=== PATIENT | male | born 1980 | race Caucasian/White ===

== ENCOUNTER 2020-10-29 15:56 | Observation (INO) | payer BC ==
[~2020-10-29] VITALS: Ht 185.4 cm; Wt 104.0 kg
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
[2020-10-29] MEDS ORDERED: SODIUM CHLORIDE FLUSH 10ML SYR IVF ONE (17:00)
[2020-10-29] MEDS ORDERED: SODIUM CHLORIDE 0.9% 1,000 ML IV ONE (17:00)
[2020-10-29] MEDS ORDERED: HYDROmorphone 2 MG/ML, 1ML IVPush ONE (17:00)
[2020-10-29] MEDS ORDERED: ONDANSETRON 2MG/ML, 2ML IVPush ONE (17:00)
--- NOTE | 2020-10-29 17:12 | NUR ---
ORTHOPEDIC SURGEON AT BEDSIDE. DISCUSSED PLAN OF CARE WITH PATIENT AND FAMILY. PER MD, PT NPO FOR SURGERY JENNIFER
[2020-10-29] MEDS ORDERED: ONDANSETRON 2MG/ML, 2ML ONE ×2 (17:13→20:28)
[2020-10-29] MEDS ORDERED: HYDROmorphone 1 MG/ML, 1ML INJ ONE (17:13)
--- NOTE | 2020-10-29 17:23 | NUR ---
pt co of pain: see mar for interventions
--- NOTE | 2020-10-29 18:51 | NUR ---
REPORT GIVEN TO OR
--- NOTE | 2020-10-29 18:52 | NUR ---
RIGHT HAND WOUND CONTINUES TO SATURATE DRESSING. REDRESSED WITH GAUZE/ COBAN.
--- NOTE | 2020-10-29 19:24 | NUR ---
Note corina in EDM - 10/29/20 at 1925 by MICHAEL PT DIAPHORETIC, HR [id number]. MADE AWARE. ORDERED MEDICATIONS ADMINISTERED AND INFUSING. SECURITY CONTACTED PER PT. REQUEST TO PLACE BELONGINGS IN [place].
--- NOTE | 2020-10-29 19:25 | NUR ---
Gabriela arriaga in [place] - 10/29/20 at 1925 by MICHAEL REPORT GIVEN TO BUSINESS SYSTEMS ANALYST
[2020-10-29] MEDS ORDERED: BUPIVACAINE/PF 0.5% ONE (19:29)
[2020-10-29] MEDS ORDERED: MIDAZOLAM 1 MG/ML, 2ML ONE (19:45)
[2020-10-29] MEDS ORDERED: FENTANYL PF 250 MCG/5ML ONE ×2 (19:45→22:11)
[2020-10-29] MEDS ORDERED: SODIUM CHLORIDE 0.9% PF 10ML ONE (19:46)
[2020-10-29] MEDS ORDERED: LABETALOL 5MG/ML, 20ML IV PRN (20:00)
[2020-10-29] MEDS ORDERED: EPHEDRINE 50 MG/ML, 1ML IVPush PRN (20:00)
[2020-10-29] MEDS ORDERED: hydrALAzine 20 MG/ML, 1ML IV PRN (20:00)
[2020-10-29] MEDS ORDERED: PROMETHAZINE 25 MG/ML, 1ML IVPush PRN (20:00)
[2020-10-29] MEDS ORDERED: OXYcodone 5 MG/5 ML ORAL.SOL UDC PO PRN (20:00)
[2020-10-29] MEDS ORDERED: ONDANSETRON 2MG/ML, 2ML IVPush PRN (20:00)
[2020-10-29] MEDS ORDERED: LIDOCAINE-MPF 2% ,5ML ONE (20:04)
[2020-10-29] MEDS ORDERED: DEXAMETHASONE 4 MG/ML, 5ML ONE (20:04)
[2020-10-29] MEDS ORDERED: KETOROLAC 30 MG/1 ML ONE (20:04)
[2020-10-29] MEDS ORDERED: PROPOFOL 10 MG/ML, 20ML ONE (20:28)
[2020-10-29] MEDS ORDERED: CEFAZOLIN 1,000 MG ONE (20:28)
[2020-10-29] MEDS ORDERED: GLYCOPYRROLATE 0.2MG/1ML, 5ML ONE ×2 (20:28→20:29)
[2020-10-29] MEDS ORDERED: BUPIVACAINE/PF 0.5% INFIL ONE (20:37)
[2020-10-30] MEDS ORDERED: CEFAZOLIN 1,000 MG ONE ×2 (00:07)
[2020-10-30] MEDS ORDERED: FENTANYL PF 250 MCG/5ML ONE (00:11)
[2020-10-30] MEDS: FENTANYL PF 100 MCG/2ML IV PRN ×2 (01:03→01:30)
[2020-10-30] MEDS ORDERED: OXYcodone 5 MG/5 ML ORAL.SOL UDC ONE (01:05)
[2020-10-30] MEDS ORDERED: HYDROmorphone 1 MG/ML, 1ML INJ ONE (01:05)
[2020-10-30] MEDS: HYDROmorphone 1 MG/ML, 1ML INJ IVPush PRN ×2 (01:11→01:27)
[2020-10-30] MEDS ORDERED: PROMETHAZINE 25 MG/ML, 1ML ONE (01:28)
[2020-10-30] MEDS ORDERED: FENTANYL PF 100 MCG/2ML ONE (01:28)
[2020-10-30] MEDS ORDERED: OXYcodone/APAP 5/325MG TABLET PO PRN ×2 (02:00)
[2020-10-30] MEDS ORDERED: ONDANSETRON 2MG/ML, 2ML IVPush PRN (02:00)
[2020-10-30 03:48] VITALS: BP 119/68
[2020-10-30] MEDS: OXYcodone/APAP 5/325MG TABLET PO PRN ×2 (05:03→09:01)
[2020-10-30 08:24] VITALS: BP 105/64
== END 2020-10-30 09:15 | disposition home or self-care (01) ==
LOC: ED 16:45 → EDIP 17:33 → 4NE 10-30 02:26
PROVIDERS: ADMIT Orthopaedic Surgery Hand Surgery; ATTEND Hospitalist
DX: S66.122A Laceration of flexor muscle, fascia and tendon of right middle finger at wrist and hand level, initial encounter (principal); S66.124A Laceration of flexor muscle, fascia and tendon of right ring finger at wrist and hand level, initial encounter; S66.126A Laceration of flexor muscle, fascia and tendon of right little finger at wrist and hand level, initial encounter; S64.496A Injury of digital nerve of right little finger, initial encounter; F17.220 Nicotine dependence, chewing tobacco, uncomplicated; W26.0XXA Contact with knife, initial encounter; Y93.89 Activity, other specified; Y92.89 Other specified places as the place of occurrence of the external cause
CPT/HCPCS: 26356; 64831; 96361; 96374; 96375; 99284; G0378; J0690; J1100; J1170; J1885; J2250; J2405; J2704; J3010; J3490; J7030; S0020